=== PATIENT | female | born 1985 | race Caucasian/White ===

== ENCOUNTER 2020-06-29 09:29 | Emergency (ER) | payer OTHER ==
[~2020-06-29] VITALS: Ht 170.2 cm; Wt 70.3 kg
--- NOTE | 2020-06-29 09:42 | NUR ---
ED Nurse Note: Pt walked into the ed due to twisted L ankle pain and swelling because she twisted her name. pt stated; she fell 3 days ago from missing a step. pt vitals are stable. We will keep monitoring the pt.
--- NOTE | 2020-06-29 09:43 | Emergency Room Report ---
History of Present Illness General Chief Complaint: Lower Extremity Injury Source: Patient Present Illness HPI Disclaimer: Please note that this report is being documented using DRAGON technology. This can lead to erroneous entry secondary to incorrect interpretation by the dictating instrument. HPI: 35-year-old female presents for evaluation of flank ankle pain after an injury. 2 days ago she missed the last step twisting her left ankle. Denies head injury or other trauma. She reported a popping sensation over the lateral aspect. Reports pain in the foot and left side of the ankle. Still able to bear weight though it is painful. Moderate swelling and bruising. Has been using Naprosyn. Denies numbness or tingling. Able to plantarflex and dorsiflex. Denies injury to the knee, hip or other parts of the body. No prior history of injury to this extremity. 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 EOMI. Resp: Normal work of breathing Skin: Intact. No abrasions, laceration or rash over the exposed skin MSK: Normal tone and bulk. Moving all extremities. Bruising over the lateral malleolus with moderate edema. Tenderness over the posterior aspect of the lateral malleolus and over the midfoot. No tenderness over the medial malleolus. Able to plantarflex and dorsiflex. Good capillary refill in all digits. Palpable PT and DP pulses. Neuro: Awake and alert. Mentating appropriately Medical Decision Making Diagnostic Impression: Primary Impression: Ankle sprain Qualified Codes: S93.402A - Sprain of unspecified ligament of left ankle, initial encounter ER Course 35-year-old female presents for evaluation of left ankle pain and swelling after an injury 3 days ago. No osseous injury identified on x-ray. Likely moderate to severe sprain. Patient placed in walking cast and provided with crutches. She will continue her Naprosyn as she has been in follow-up with her PMD and orthopedic surgery as needed. Instructed limiting activity until symptoms are resolved. Discussed RICE treatment for ligamentous injuries. Discussed reasons to return to the emergency department. She understands agrees with the treatment plan. 1145: After the patient departed the ED isolated by radiology that there are 2 osseous densities adjacent to the talus and the anterior calcaneus. Low suspicion that these are acute fracture and the patient is nontender in those areas. Regardless she was placed in a walking cast and was instructed to follow-up with orthopedic surgery through her PMD. Attempted to call patient at home however she kept hanging up after answering and therefore was unable to leave a message. Other X-Ray Diagnostic Results Other X-Ray Diagnostic Results #1: X-Ray ordered: Left ankle # of Views/Limited Vs Complete: 3 View Indication: Pain EP Interpretation: Yes Interpretation: no dislocation, no soft tissue swelling, no fractures Impression: No acute disease Other X-Ray Diagnostic Results #2: X-Ray ordered: Left foot # of Views/Limited Vs Complete: 3 View Indication: Pain EP Interpretation: Yes Interpretation: no dislocation, no soft tissue swelling, no fractures Impression: No acute disease Electronically Signed by: Electronically signed by Dr. Param Fournier MD Last Vital Signs Date Time Temp Pulse Resp B/P (MAP) Pulse Ox O2 Delivery O2 Flow Rate FiO2 06/29/20 09:35 97.2 64 22 114/48 (70) 98 Room Air Disposition: HOME, SELF-CARE Condition: Stable Scripts No Active Prescriptions or Reported Meds Param Fournier MD Jun 29, 2020 09:43
--- NOTE | 2020-06-29 10:24 | NUR ---
ER DISCHARGE NOTE: Patient is cleared to be discharged per ERMD, pt is aox4, on room air, with stable vital signs. pt was given dc instructions, pt was able to verbalize understanding, pt id band removed without complications. pt is able to ambulate with steady gait. pt took all belongings.
[2020-06-29 10:25] VITALS: BP 123/69
--- NOTE | 2020-06-29 11:30 | Diagnostic Imaging Report ---
Indication: Left foot pain, trauma Technique: 3 views left foot Comparison: none Findings: Osseous density adjacent to the dorsal medial tip of the talus appears corticated, probably does not represent an acute fracture fragment. There is also sliver of density lateral to the anterior calcaneus. No other evidence of acute fracture. No dislocations. Joint spaces are preserved. Impression: 2 small ossific densities as described, probably physiologic but small avulsion fractures are not completely excludable. Correlate with clinical findings No definite evidence of acute bony trauma otherwise Findings discussed by phone with Dr. Fournier in the emergency room at the time of interpretation
--- NOTE | 2020-06-29 15:10 | Diagnostic Imaging Report ---
Indication: Pain, trauma Technique: 3 views of the left ankle Comparison: none Findings: Calcific density is seen superior to the anterior talus on the lateral view. No definite acute fracture, dislocation. The joint spaces are preserved. Impression: No acute process
== END 2020-06-29 10:24 | disposition home or self-care (01) ==
LOC: EMR 09:52
DX: S93.402A Sprain of unspecified ligament of left ankle, initial encounter (principal); Z88.0 Allergy status to penicillin; X50.1XXA Overexertion from prolonged static or awkward postures, initial encounter; Y93.01 Activity, walking, marching and hiking; Y92.9 Unspecified place or not applicable
CPT/HCPCS: 29505; 73610; 73630; Z7502; 99283